=== PATIENT | male | born 2000 | race Caucasian/White ===

== ENCOUNTER 2023-01-31 20:12 | Emergency (ER) | payer OTHER, BC, SELFPAY ==
[2023-01-31] VITALS (9 sets, daily range): BP systolic 121–131; BP diastolic 71–84; PULSE 98–130; RESP 16–25; TEMP 36.6; O2SAT 97–100; BMI 30.7
--- NOTE | 2023-01-31 20:19 | ECG_ITS ---
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
--- NOTE | 2023-01-31 20:26 | XR_ITS ---
[address] [address] Patient Name: ADAN FELIZ MRN: [id number] date: 2000 Sex: M Assigned Patient Location: ER Current Patient Location: ER Accession/Order Number: [id number] Exam Date: 01/31/2023 21:25 Report Date: 01/31/2023 21:48 At the request of: LORENZO JAIMES Procedure: XR chest 1V EXAM: XR chest 1V HISTORY: Syncope COMPARISON: None. FINDINGS: Frontal radiograph of the chest was obtained. No focal consolidation, pleural effusion or pneumothorax. Enlarged cardiac shadow. No acute osseous abnormality. Right apex curvature to the spine. XR/XR chest 1V IMPRESSION: No focal consolidation, pleural effusion or pneumothorax. Enlarged cardiac shadow. Electronically authenticated by: ITALIA JOSE Date: 01/31/2023 21:48
--- NOTE | 2023-01-31 20:26 | XR_ITS ---
[address] [address] Patient Name: ADAN FELIZ MRN: [id number] date: 2000 Sex: M Assigned Patient Location: ER Current Patient Location: ED.MAIN Accession/Order Number: [id number] Exam Date: 01/31/2023 21:25 Report Date: 01/31/2023 21:47 At the request of: LORENZO JAIMES Procedure: XR hand RT min 3V EXAM: XR hand RT min 3V HISTORY: Right hand injury COMPARISON: None. FINDINGS: 3 radiographs of the right hand were obtained. No fracture or dislocation. Joint spaces are well-maintained. Soft tissues are normal. XR/XR hand RT min 3V IMPRESSION: No acute fracture or dislocation. Electronically authenticated by: ITALIA JOSE Date: 01/31/2023 21:47
--- NOTE | 2023-01-31 20:26 | CT_ITS ---
The [address] [address] Patient Name: ADAN FELIZ MRN: [id number] date: 2000 Sex: M Assigned Patient Location: ED.MAIN Current Patient Location: Accession/Order Number: [id number] Exam Date: 01/31/2023 21:43 Report Date: 01/31/2023 22:01 At the request of: LORENZO JAIMES Procedure: CT head/brain wo con Indication: 22 years year old Male referred for syncope Comparison: None Technique: Noncontrast CT of the head was performed. Sagittal and coronal planes were obtained. Findings: The ventricles, cerebral sulci, and basal cisterns are normal for the patient's age. There is no shift in midline structures or focal mass effect. There is no acute transcortical infarction or intraparenchymal hemorrhage. There is no extra-axial fluid collection. Cavum septum pellucidum, an anatomic variant. Mild mucosal thickening to the anterior ethmoid air cells. The mastoid air cells and paranasal sinuses are otherwise clear. There is no depressed calvarial fracture. The orbits are normal. Soft tissues are within normal limits. CT/CT head/brain wo con Impression: No acute intracranial findings. Electronically authenticated by: ITALIA JOSE Date: 01/31/2023 22:01
--- NOTE | 2023-01-31 20:27 | ED.SYNCOPE1 ---
Documented by User: TRINY Brian 01/31/23 21:41 HPI - Syncope General Chief Complaint: Syncope Stated Complaint: SYNCOPY Time Seen by Provider: 01/31/23 20:15 Source: patient Mode of arrival: walk-in Limitations: no limitations History of Present Illness HPI narrative: patient is a 22-year-old male who presents to the emergency department after syncopal episode at work. He states he was swinging a hammer at work prior to arrival when he felt lightheaded as though he may pass out and states he woke up on the floor. He reports some pain to the right hand, he believes he hit his right hand with a hammer. He denies any sensation of spinning. He has not had any headache, visual changes, chest pain, shortness of breath. He denies any recent illness, fevers, cough, chills, congestion. No vomiting or diarrhea. He denies any pain to the neck or back. He has not had any palpitations. He has no history of syncope, no history of other medical problems. He states he ate a sandwich and drank a cup of water today, he has not had any other food or fluids. Related Data Home Medications Medication Instructions Recorded Confirmed No Known Home Medications 01/31/23 01/31/23 Allergies Allergy/AdvReac Type Severity Reaction Status Date / Time No Known Drug Allergies Allergy Verified 01/31/23 20:19 Review of Systems ROS Constitutional Denies: fever or chills Ears, nose, mouth, and throat Denies: throat pain Cardiovascular Denies: chest pain Respiratory Denies: shortness of breath or cough Gastrointestinal Denies: nausea or vomiting Genitourinary Denies: painful urination Musculoskeletal Denies: neck pain Integumentary/Breast Denies: rash Neurological Denies: headache Hematologic/Lymphatic Denies: easy bruising PFSH PFSH Social History Smoking status: Never smoker Exam Narrative Exam Narrative: Gen.: Awake, alert, in no distress Head: Normocephalic, atraumatic ENT: Moist mucous membranes, no visible facial or dental injury. C-spine nontender Respiratory: No respiratory distress, lungs clear bilaterally Cardio: slightly tachycardic, no murmurs appreciated Gastrointestinal: Abdomen is soft, nondistended and nontender to palpation Extremities: Moves extremities equally, mild tenderness of the right 3rd MCP joint, no edema or ecchymosis noted. Normal station gateman strength in the right hand Psych: Normal mood and affect Neuro: No focal neuro deficit Skin: Warm, dry, intact Constitutional Vital Signs, click to edit/add: Last Vital Signs Temp 97.8 F 01/31/23 20:15 Pulse 102 H 01/31/23 21:38 Resp 18 01/31/23 21:38 BP 121/78 01/31/23 21:38 Pulse Ox 100 01/31/23 21:38 O2 Del Method Room Air 01/31/23 20:15 Course Vital Signs Vital signs: Vital Signs Temperature 97.8 F 01/31/23 20:15 Pulse Rate 108 H 01/31/23 20:15 Respiratory Rate 16 01/31/23 20:15 Blood Pressure 129/84 01/31/23 20:15 Pulse Oximetry 100 01/31/23 20:15 Oxygen Delivery Method Room Air 01/31/23 20:15 Temperature 97.8 F 01/31/23 20:15 Pulse Rate 102 H 01/31/23 21:38 Respiratory Rate 18 01/31/23 21:38 Blood Pressure 121/78 01/31/23 21:38 Pulse Oximetry 100 01/31/23 21:38 Oxygen Delivery Method Room Air 01/31/23 20:15 MDM - Syncope MDM Narrative Medical decision making narrative: EKG is unremarkable, lab studies obtained showing hypokalemia and dehydration. Patient was given IV fluids. He has no significant complaint of pain or nausea in the Emergency Room. He is awake, alert with a normal neuro exam. Lactic acid is elevated. X-rays of the chest and right hand were obtained with no evidence of acute process. CT of the brain is obtained as well as the patient has never had a syncopal episode before and woke up on the floor. Results of imaging studies are pending at this time in case turned over to attending physician for disposition. Medical Records Attestation: I reviewed the patient's medical records. Lab Data Attestation: I reviewed the patient's lab results. Labs: Lab Results 01/31/23 01/31/23 Range/Units 20:20 20:40 WBC 7.8 (4.0-11.0) 10^3/uL RBC 5.74 (4.70-6.10) 10^6/uL Hgb 16.7 (14.0-18.0) g/dL Hct 47.7 (42.0-54.0) % MCV 83.1 (80.0-94.0) fL MCH 29.1 (25.9-34.0) pg MCHC 35.0 (29.9-35.2) g/dL RDW 12.5 (11.0-15.0) % Plt Count 250 (150-450) 10^3/uL MPV 9.6 (9.5-13.5) fL Neut % (Auto) 55.6 (43.0-75.0) % Lymph % (Auto) 29.8 (20.5-60.0) % [place] % (Auto) 7.6 (1.7-12.0) % Eos % (Auto) 5.8 (0.9-7.0) % Baso % (Auto) 0.8 (0.2-2.0) % Neut # (Auto) 4.3 (1.4-6.5) 10^3/uL Lymph # (Auto) 2.3 (1.2-3.8) 10^3/uL [place] # (Auto) 0.6 (0.3-0.8) 10^3/uL Eos # (Auto) 0.5 (0.0-0.7) 10^3/uL Baso # (Auto) 0.1 (0.0-0.1) 10^3/uL Abs Immat Gran (auto) 0.03 (0.00-0.03) 10^3/uL Imm/Tot Granulo (auto) 0.4 (0.0-0.5) % Sodium 136 (136-145) mmol/L Potassium 3.1 L (3.5-5.1) mmol/L Chloride 99 (98-107) mmol/L Carbon Dioxide 26.0 (21.0-32.0) mmol/L Anion Gap 14.1 BUN 14.0 (7.0-18.0) mg/dL Creatinine 1.42 H (0.70-1.30) mg/dL Est GFR ( Amer) >60 (>=60) Est GFR (Non-Af Amer) >60 (>=60) BUN/Creatinine Ratio 9.9 Glucose 104 (74-106) mg/dL Lactate 2.4 H* (0.4-2.0) mmol/L Calcium 9.8 (8.5-10.1) mg/dL Total Bilirubin 0.8 (0.2-1.0) mg/dL AST 23 (15-37) U/L ALT 46 (16-63) U/L Alkaline Phosphatase 73 (46-116) U/L Troponin I High Sens 4.8 (4.0-76.1) pg/mL Total Protein 7.9 (6.4-8.2) g/dL Albumin 4.6 (3.4-5.0) g/dL Globulin 3.3 g/dL Albumin/Globulin Ratio 1.4 Urine Color Lt. yellow (YELLOW) Urine Clarity Clear (CLEAR) Urine pH 7.0 (5.0-9.0) Ur Specific [place] 1.015 (1.005-1.025) Urine Protein Negative (NEG/TRACE) mg/dL Urine Glucose (UA) Negative (NEGATIVE) mg/dL Urine Ketones Negative (NEGATIVE) mg/dL Urine Occult Blood Negative (NEGATIVE) Urine Nitrite Negative (NEGATIVE) Urine Bilirubin Negative (NEGATIVE) Urine Urobilinogen 0.2 (0.2-1.0) EU/dL Ur Leukocyte Esterase Negative (NEGATIVE) ECG Data Attestation: I personally reviewed and interpreted this ECG as follows: (sinus tachycardia at a rate of 113, sinus arrhythmia noted with no acute ST elevation or ectopy. EKG reviewed by attending physician) ECG interpretation date: 01/31/23 ECG interpretation time: 20:40 Discharge Plan Discharge Chief Complaint: Syncope Clinical Impression: Syncope, Dehydration, Hypokalemia Patient Disposition: Home, Self-Care Prescriptions / Home Meds: No Action No Known Home Medications Instructions: Dehydration (ED), Hypokalemia (ED), Syncope (ED) Stand Alone Forms: Portal Instructions Referrals: Physician,Non-Staff, MD [Primary Care Provider] - 1 week Documented by User: Gerry Antonio MD 01/31/23 23:00 HPI - Syncope General Chief Complaint: Syncope Stated Complaint: SYNCOPY Time Seen by Provider: 01/31/23 20:15 Related Data Home Medications Medication Instructions Recorded Confirmed No Known Home Medications 01/31/23 01/31/23 Allergies Allergy/AdvReac Type Severity Reaction Status Date / Time No Known Drug Allergies Allergy Verified 01/31/23 20:19 PFSH PFSH Social History Smoking status: Never smoker Exam Constitutional Vital Signs, click to edit/add: Last Vital Signs Temp 97.8 F 01/31/23 20:15 Pulse 102 H 01/31/23 21:38 Resp 18 01/31/23 21:38 BP 121/78 01/31/23 21:38 Pulse Ox 100 01/31/23 21:38 O2 Del Method Room Air 01/31/23 20:15 Course Vital Signs Vital signs: Vital Signs Temperature 97.8 F 01/31/23 20:15 Pulse Rate 108 H 01/31/23 20:15 Respiratory Rate 16 01/31/23 20:15 Blood Pressure 129/84 01/31/23 20:15 Pulse Oximetry 100 01/31/23 20:15 Oxygen Delivery Method Room Air 01/31/23 20:15 Temperature 97.8 F 01/31/23 20:15 Pulse Rate 102 H 01/31/23 21:38 Respiratory Rate 18 01/31/23 21:38 Blood Pressure 121/78 01/31/23 21:38 Pulse Oximetry 100 01/31/23 21:38 Oxygen Delivery Method Room Air 01/31/23 20:15 MDM - Syncope MDM Narrative Medical decision making narrative: EKG is unremarkable, lab studies obtained showing hypokalemia and dehydration. Patient was given IV fluids. He has no significant complaint of pain or nausea in the Emergency Room. He is awake, alert with a normal neuro exam. Lactic acid is elevated. X-rays of the chest and right hand were obtained with no evidence of acute process. CT of the brain is obtained as well as the patient has never had a syncopal episode before and woke up on the floor. Results of imaging studies are pending at this time in case turned over to attending physician for disposition. diagnostic studies all returned WNL. Patient is asymptomatic after hydration and is discharged home Lab Data Labs: Lab Results 01/31/23 01/31/23 Range/Units 20:20 20:40 WBC 7.8 (4.0-11.0) 10^3/uL RBC 5.74 (4.70-6.10) 10^6/uL Hgb 16.7 (14.0-18.0) g/dL Hct 47.7 (42.0-54.0) % MCV 83.1 (80.0-94.0) fL MCH 29.1 (25.9-34.0) pg MCHC 35.0 (29.9-35.2) g/dL RDW 12.5 (11.0-15.0) % Plt Count 250 (150-450) 10^3/uL MPV 9.6 (9.5-13.5) fL Neut % (Auto) 55.6 (43.0-75.0) % Lymph % (Auto) 29.8 (20.5-60.0) % [place] % (Auto) 7.6 (1.7-12.0) % Eos % (Auto) 5.8 (0.9-7.0) % Baso % (Auto) 0.8 (0.2-2.0) % Neut # (Auto) 4.3 (1.4-6.5) 10^3/uL Lymph # (Auto) 2.3 (1.2-3.8) 10^3/uL [place] # (Auto) 0.6 (0.3-0.8) 10^3/uL Eos # (Auto) 0.5 (0.0-0.7) 10^3/uL Baso # (Auto) 0.1 (0.0-0.1) 10^3/uL Abs Immat Gran (auto) 0.03 (0.00-0.03) 10^3/uL Imm/Tot Granulo (auto) 0.4 (0.0-0.5) % Sodium 136 (136-145) mmol/L Potassium 3.1 L (3.5-5.1) mmol/L Chloride 99 (98-107) mmol/L Carbon Dioxide 26.0 (21.0-32.0) mmol/L Anion Gap 14.1 BUN 14.0 (7.0-18.0) mg/dL Creatinine 1.42 H (0.70-1.30) mg/dL Est GFR ( Amer) >60 (>=60) Est GFR (Non-Af Amer) >60 (>=60) BUN/Creatinine Ratio 9.9 Glucose 104 (74-106) mg/dL Lactate 2.4 H* (0.4-2.0) mmol/L Calcium 9.8 (8.5-10.1) mg/dL Total Bilirubin 0.8 (0.2-1.0) mg/dL AST 23 (15-37) U/L ALT 46 (16-63) U/L Alkaline Phosphatase 73 (46-116) U/L Troponin I High Sens 4.8 (4.0-76.1) pg/mL Total Protein 7.9 (6.4-8.2) g/dL Albumin 4.6 (3.4-5.0) g/dL Globulin 3.3 g/dL Albumin/Globulin Ratio 1.4 Urine Color Lt. yellow (YELLOW) Urine Clarity Clear (CLEAR) Urine pH 7.0 (5.0-9.0) Ur Specific [place] 1.015 (1.005-1.025) Urine Protein Negative (NEG/TRACE) mg/dL Urine Glucose (UA) Negative (NEGATIVE) mg/dL Urine Ketones Negative (NEGATIVE) mg/dL Urine Occult Blood Negative (NEGATIVE) Urine Nitrite Negative (NEGATIVE) Urine Bilirubin Negative (NEGATIVE) Urine Urobilinogen 0.2 (0.2-1.0) EU/dL Ur Leukocyte Esterase Negative (NEGATIVE) Discharge Plan Discharge Chief Complaint: Syncope Clinical Impression: Syncope, Dehydration, Hypokalemia Patient Disposition: Home, Self-Care Prescriptions / Home Meds: No Action No Known Home Medications Instructions: Dehydration (ED), Hypokalemia (ED), Syncope (ED) Stand Alone Forms: Portal Instructions Referrals: Physician,Non-Staff, MD [Primary Care Provider] - 1 week
[2023-01-31 20:36] LABS: Basophils Absolute Auto 0.1 10^3/uL (0.0-0.1); Basophils Percent Auto 0.8 % (0.2-2.0); Eosinophils Absolute Auto 0.5 10^3/uL (0.0-0.7); Eosinophils Percent Auto 5.8 % (0.9-7.0); Hematocrit 47.7 % (42.0-54.0); Hemoglobin 16.7 g/dL (14.0-18.0); Immature Granulocytes Abs Auto 0.03 10^3/uL (0.00-0.03); Immature Granulocytes Pct Auto 0.4 % (0.0-0.5); Lymphocytes Absolute Auto 2.3 10^3/uL (1.2-3.8); Lymphocytes Percent Auto 29.8 % (20.5-60.0); Mean Corpuscular Hemoglobin 29.1 pg (25.9-34.0); Mean Corpuscular Volume 83.1 fL (80.0-94.0); Mean Platelet Volume 9.6 fL (9.5-13.5); Monocytes Absolute Auto 0.6 10^3/uL (0.3-0.8); Monocytes Percent Auto 7.6 % (1.7-12.0); Neutrophils Absolute Auto 4.3 10^3/uL (1.4-6.5); Neutrophils Percent Auto 55.6 % (43.0-75.0); Platelet Count 250 10^3/uL (150-450); Red Blood Count 5.74 10^6/uL (4.70-6.10); Red Cell Distribution Width 12.5 % (11.0-15.0); White Blood Count 7.8 10^3/uL (4.0-11.0)
[2023-01-31] MEDS: 0.9 % SODIUM CHLORIDE 1,000 ML 999 ML IV (20:47)
[2023-01-31 20:50] LABS: Alanine Aminotransferase 46 U/L (16-63); Albumin Globulin Ratio 1.4; Albumin Level 4.6 g/dL (3.4-5.0); Alkaline Phosphatase 73 U/L (46-116); Anion Gap 14.1; Aspartate Amino Transferase 23 U/L (15-37); BUN Creatinine Ratio 9.9; Bilirubin Total 0.8 mg/dL (0.2-1.0); Calcium 9.8 mg/dL (8.5-10.1); Chloride 99 mmol/L (98-107); Estimated GFR (African America >60 (>=60); Estimated GFR (Non-African Ame >60 (>=60); Globulin 3.3 g/dL; Glucose 104 mg/dL (74-106); Potassium 3.1 mmol/L (3.5-5.1); Sodium 136 mmol/L (136-145); Total Protein 7.9 g/dL (6.4-8.2); Troponin I High Sensitivity 4.8 pg/mL (4.0-76.1)
[2023-01-31 20:55] LABS: Bilirubin Urine NEGATIVE (NEGATIVE); Blood Urine NEGATIVE (NEGATIVE); Clarity Urine CLEAR (CLEAR); Color Urine LT. YELLOW (YELLOW); Glucose Urine UA NEGATIVE (NEGATIVE); Ketones Urine NEGATIVE (NEGATIVE); Leukocyte Esterase Urine NEGATIVE (NEGATIVE); Nitrite Urine NEGATIVE (NEGATIVE); Protein Urine NEGATIVE (NEG/TRACE); Specific Gravity Urine 1.015 (1.005-1.025); Urine Microscopic Indicated NO; Urobilinogen Urine 0.2 EU/dL (0.2-1.0)
[2023-01-31 20:55] LABS: Lactate/Lactic Acid 2.4 mmol/L (0.4-2.0)
[2023-01-31] MEDS: POTASSIUM BICARBONATE/CIT 25 MEQ TABLET EFF 50 MEQ PO (21:20)
[2023-01-31 23:48] LABS: Lactate/Lactic Acid 0.6 mmol/L (0.4-2.0)
== END 2023-01-31 23:39 | disposition home or self-care (01) ==
PROVIDERS: Physician Assistant; Emergency Provider Internal Medicine
DX: R55 Syncope and collapse (principal); E87.6 Hypokalemia; E86.0 Dehydration
CPT/HCPCS: 36415; 70450; 71045; 73130; 80053; 81003; 83605; 84484; 85025; 93005; 99285